=== PATIENT | female | born 2005 | race Caucasian/White ===

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

== ENCOUNTER 2024-01-18 13:50 | Emergency (ER) | payer SELFPAY ==
[2024-01-18 13:54] VITALS: BP 107/77; PULSE 110; TEMP 36.8; O2SAT 99; BMI 29.5
--- NOTE | 2024-01-18 14:06 | ED.GENADUL1 ---
HPI HPI - General Adult General Chief complaint: Skin/Abscess/Foreign Body Stated complaint: INSECT BITE, CONGESTION Time Seen by Provider: 01/18/24 13:52 Source: patient Mode of arrival: walk-in Limitations: no limitations History of Present Illness HPI narrative: Patient is a 18-year-old female who presents to the emergency department because she is afraid that she was bitten by a brown recluse earlier today. She states she saw a spider in the home, she believes she identified it as a brown recluse spider. She has no areas of bite, no other focal medical complaints other than congestion and pressure in the right ear. She wants her daughter also evaluated to make sure that she was not bitten. Patient has not had any vomiting, diarrhea, fevers, stomach cramps. She is not concerned for . No medications taken prior to arrival. Related Data Previous Rx's ?Medication ?Instructions ?Recorded amoxicillin 500 mg capsule 500 mg PO TID 10 days #30 caps 10/22/23 [id number] 10 ml PO Q6H PRN cold symptoms 01/18/24 2 mg-30 mg-10 mg/5 mL oral syrup #200 mL (Bromfed DM) Allergies Allergy/AdvReac Type Severity Reaction Status Date / Time No Known Drug Allergies Allergy Verified 10/22/23 04:54 Opioid HPI Opioid Management Most Recent Opioid Data: No Data to Display Review of Systems ROS Constitutional Denies: fever or chills Ears, nose, mouth, and throat Reports: ear pain and nasal congestion; Denies: throat pain Cardiovascular Denies: chest pain Respiratory Denies: shortness of breath or cough Gastrointestinal Denies: nausea, vomiting or diarrhea Musculoskeletal Denies: back pain Integumentary/Breast Denies: rash, redness or skin pain Hematologic/Lymphatic Denies: easy bruising or easy bleeding Exam Narrative Exam Narrative: Gen.: Awake, alert, in no distress Head: Normocephalic, atraumatic ENT: Moist mucous membranes, Bilateral TMs Clear Respiratory: No respiratory distress Extremities: Moves extremities equally Psych: Normal mood and affect Neuro: No focal neuro deficit Skin: Warm, dry, intact; No visible insect bites, redness or rash Constitutional Vital Signs, click to edit/add: Last Vital Signs Temp 98.2 F 01/18/24 13:54 Pulse 110 H 01/18/24 13:54 Resp 18 01/18/24 13:54 BP 107/77 01/18/24 13:54 Pulse Ox 99 01/18/24 13:54 Course Vital Signs Vital signs: Vital Signs Temperature 98.2 F 01/18/24 13:54 Pulse Rate 110 H 01/18/24 13:54 Respiratory Rate 18 01/18/24 13:54 Blood Pressure 107/77 01/18/24 13:54 Pulse Oximetry 99 01/18/24 13:54 Temperature 98.2 F 01/18/24 13:54 Pulse Rate 110 H 01/18/24 13:54 Respiratory Rate 18 01/18/24 13:54 Blood Pressure 107/77 01/18/24 13:54 Pulse Oximetry 99 01/18/24 13:54 Medical Decision Making MDM Narrative Medical decision making narrative: Patient's daughter was tested for influenza and RSV 2 days ago and was negative. Patient likely has a viral upper respiratory infection similar to her daughter. She was started on Bromfed-DM, she has no evidence of insect bite at this time. Follow-up with PCP, patient was given a referral as she does not currently have a doctor. Return to the ER if symptoms change or worsen Medical Records Medical records reviewed: Yes I reviewed the patient's medical records Discharge Plan Discharge Stand Alone Forms: Portal Instructions Chief Complaint: Skin/Abscess/Foreign Body Clinical Impression: Upper respiratory infection Patient Disposition: Home, Self-Care Time of Disposition Decision: 14:05 Condition: Good Prescriptions / Home Meds: New [id number] [Bromfed DM] 2-30-10 mg/5 mL syrup 10 ml PO Q6H PRN (Reason: cold symptoms) Qty: 200 0RF No Action amoxicillin 500 mg capsule 500 mg PO TID 10 Days Qty: 30 0RF Print Language: Upper Sorbian Instructions: Upper Respiratory Infection (ED) Referrals: Physician,Non-Staff, MD [Primary Care Provider] - 1 week
== END 2024-01-18 14:13 | disposition home or self-care (01) ==
LOC: ER 14:16
PROVIDERS: Emergency Provider Emergency Medicine
DX: J06.9 Acute upper respiratory infection, unspecified (principal)
CPT/HCPCS: 99283

== ENCOUNTER 2024-02-23 00:25 | Emergency (ER) | payer OTHER, SELFPAY ==
[2024-02-23 00:28] VITALS: BP 107/70; PULSE 83; TEMP 37; O2SAT 100; BMI 17.4
--- OUTSIDE RECORDS SUMMARY | 2024-02-23 00:31 | XMS_ITS | CCD ---
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 [facility] [address] [place] [address] Dr. Earl Lugo Platelet mean volume (Bld) [Entitic vol] 10.9 fL Normal 9.5-13.5 [facility] Comment on above: Performed By: #### C BC #### [facility] [address] [address] [address] Earl Lugo PLT 300 103/ul Normal 150-450 [facility] Comment on above: Performed By: #### C BC #### [facility] [address] [address] [address] Earl Lugo RBC 3.93 106/ul Normal 3.40-5.30 [facility] Comment on above: Performed By: #### C BC #### [facility] [address] [address] [address] Earl Lugo WBC 8.6 103/ul Normal 4.0-11.0 [facility] Comment on above: Performed By: #### C BC #### [facility] [address] [place] [address] Dr. Earl Lugo Covid-19 PCR (CVDTBH)on 02-14 SARS-CoV-2 (COVID-19) RNA SIMRAN+probe Ql (Unsp spec) Not detected Normal NOT DETECTED [facility] Comment on above: Result Comment: When diagnostic testing is negative, the possibility of a false negative should be considered in the context of a patient's recent exposures and the presence of clinical signs and symptoms consistent with SARS-CoV-2. This test is not yet approved or cleared by the [place] FDA. When there are no FDA-approved or cleared tests available, and other criteria are met, FDA can make tests available under an emergency access mechanism called an Emergency Use Authorization (EUA). The EUA for this test is supported by the Agricultural Extension Educator of Health and Human Service's declaration that circumstances exist to justify the emergency use of in vitro diagnostics for the detection and/or diagnosis of the virus that causes COVID-19. This EUA will remain in effect for the duration of the COVID-19 declaration justifying emergency of IVDs, unless it is terminated or revoked by the FDA (after which the test may no longer be used). Performed By: #### C VDTBH #### [facility] [address] [place] [address] Dr. Earl Lugo DRUG SCREEN RAPID (URINE)on 03-03-2022 AMP Negative Normal NEGATIVE [facility] Comment on above: Performed By: #### D RUGRPD #### [facility] [address] [place] [address] Dr. Earl Lugo BAR Negative Normal NEGATIVE [facility] Comment on above: Performed By: #### D RUGRPD #### [facility] [address] [place] [address] Dr. Earl Lugo BUP Negative Normal NEGATIVE [facility] Comment on above: Performed By: #### D RUGRPD #### [facility] [address] [place] [address] Dr. Earl Lugo BZO Negative Normal NEGATIVE [facility] Comment on above: Performed By: #### D RUGRPD #### [facility] [address] [place] [address] Dr. Earl Lugo SLAVA Negative Normal NEGATIVE [facility] Comment on above: Performed By: #### D RUGRPD #### [facility] [address] [place] [address] Dr. Earl Lugo CUT-OFFS SEE BELOW Normal [facility] Comment on above: Result Comment: AMP (Amphetamine): 500ng/mL, BAR (Barbituates): 200 ng/mL, BZO (Benzodiazepines): 150 ng/mL, BUP (Buprenorphine): 10 ng/mL, SLAVA (Cocaine): 150 ng/mL, mAMP (Methamphetamine): 500 ng/mL, MTD (Methadone): 200 ng/mL, OPI (Opiates): 100 ng/mL, OXY (Oxycodone): 100 ng/mL, PCP (Phencyclidine): 25 ng/mL, PPX (Propoxyphene): 300 ng/mL, THC (Cannabinoids): 50 ng/mL, TCA (Trycyclic Antidepressants): 300 ng/mL Performed By: #### D RUGRPD #### [facility] [address] [place] [address] Dr. Earl Lugo DRUG CUT HEADER DRUG CLASS TEST SYSTEM CUT-OFF CONCENTRATIONS ARE FOLLOWS: Normal [facility] Comment on above: Performed By: #### D RUGRPD #### [facility] [address] [place] [address] Dr. Earl Lugo mAMP Negative Normal NEGATIVE [facility] Comment on above: Performed By: #### D RUGRPD #### [facility] [address] [address] [address] Earl Lugo MTD Negative Normal NEGATIVE [facility] Comment on above: Performed By: #### D RUGRPD #### [facility] [address] [place] [address] Dr. Earl Lugo OPI Negative Normal NEGATIVE [facility] Comment on above: Performed By: #### D RUGRPD #### [facility] [address] [place] [address] Dr. Earl Lugo OXY Negative Normal NEGATIVE [facility] Comment on above: Performed By: #### D RUGRPD #### [facility] [address] [place] [address] Dr. Earl Lugo PCP Negative Normal NEGATIVE [facility] Comment on above: Performed By: #### D RUGRPD #### [facility] [address] [place] [address] Dr. Earl Lugo PPX Negative Normal NEGATIVE [facility] Comment on above: Performed By: #### D RUGRPD #### [facility] [address] [place] [address] Dr. Earl Lugo TCA Negative Normal NEGATIVE [facility] Comment on above: Performed By: #### D RUGRPD #### [facility] [address] [place] [address] Dr. Earl Lugo THC Positive Abnormal NEGATIVE [facility] Comment on above: Performed By: #### D RUGRPD #### [facility] [address] [place] [address] Dr. Earl Lugo TYPE AND SCREENon 03-03-2022 TYPE AND SCREEN Negative Normal [facility] Comment on above: Performed By: #### T NS #### [facility] [address] [place] [address] Dr. Earl Lugo GROUP B STREP CULTUREon 02-14 S. agalactiae Ag Ql (Unsp spec) Culture Observations: NEGATIVE FOR GROUP B STREPTOCOCCUS. Normal [facility] Comment on above: Performed By: #### G BSCX #### [facility] [address] [place] [address] Dr. Earl Lugo PREG GROWTHon 03-01-2022 US PREG GROWTH EXAMINATION: US PREG GROWTH HISTORY: Uterine size for dates discrepancy COMPARISON: No relevant comparison available. FINDINGS: Heart Rate: 135.0 bpm Amniotic Fluid Volume: 10.3 cm Number: 1.0 Position: Breech presentation, longitudinal lie Maximum Vertical Pocket: 3.5 cm cm 3.0 cm cm 0.7 cm cm 3.2 cm cm BIOMETRY: BPD: 8.7 cm cm; 35 weeks 0 days; 38% HC: 32.9 cmcm; 37 weeks 2 days, 62% AC: 31.7 cm cm; 35 weeks 4 days, 61% FL: 7.2 cm cm; 37 weeks 0 days; 80.0 % % EFW: 2852.2 grams, 6 lbs. 5 oz., 65% FL/AC: 22.8 FL/BPD: 83.4 HC/AC: 1.0 GESTATIONAL AGE: Age by EDC: 35 weeks 4 days ZINA by EDC: 04/01/2022 Age by US: 36 weeks 2 days ZINA by US: 03/27/2022 IMPRESSION: Normal interval growth Electronically authenticated by: KASHIF SLOAN Date: 2022-03-01 11:36 Normal [facility] Vital Signs Date Time Vital Sign Value Performing Clinician Facility 02-03-2024 14:37-0400 Body height 160.02 cm PHYSICIAN NO [facility] 02-03-2024 14:37-0400 Body temperature 98.6 [degF] PHYSICIAN NO [facility] 02-03-2024 14:37-0400 Body weight 44.3 kg PHYSICIAN NO [facility] 02-03-2024 14:37-0400 Diastolic blood pressure 75 mm[Hg] PHYSICIAN NO [facility] 02-03-2024 14:37-0400 Heart rate 95 /min PHYSICIAN NO [facility] 02-03-2024 14:37-0400 Respiratory rate 16 /min PHYSICIAN NO [facility] 02-03-2024 14:37-0400 SaO2% (BldA) [Mass fraction] 100 % PHYSICIAN NO [facility] 02-03-2024 14:37-0400 Systolic blood pressure 119 mm[Hg] PHYSICIAN [facility] 07-21-2022 19:17-0400 Body height 154.9 cm Daniel Mg MD Work Phone: [facility] [employer] 07-21-2022 19:17-0400 Body mass index (BMI) [Percentile] Per age and sex 5.93 % Daniel Mg MD Work Phone: [facility] [employer] 07-21-2022 19:17-0400 Body mass index (BMI) [Ratio] 17.76 kg/m2 Daniel Mg MD Work Phone: [facility] [employer] 07-21-2022 19:17-0400 Body temperature 99.19 [degF] Daniel Mg MD Work Phone: [facility] 07-21-2022 19:17-0400 Body weight 42.64 kg Daniel Mg MD Work Phone: [facility] [employer] 07-21-2022 19:17-0400 Diastolic blood pressure 84 mm[Hg] Daniel Mg MD Work Phone: [facility] [employer] 07-21-2022 19:17-0400 Heart rate 118 /min Daniel Mg MD Work Phone: [facility] 07-21-2022 19:17-0400 Respiratory rate 18 /min Daniel Mg MD Work Phone: [facility] [employer] 07-21-2022 19:17-0400 SaO2% (BldA) [Mass fraction] 96 % Daniel Mg MD Work Phone: [facility] [employer] 07-21-2022 19:17-0400 Systolic blood pressure 117 mm[Hg] Daniel Mg MD Work Phone: [facility] Encounters Encounter Date Encounter Type Care Provider Facility Start: 02-03-2024 End: 02-03-2024 Emergency department patient visit Zina White Facility:[facility] Start: 02-03-2024 End: 02-03-2024 Emergency department patient visit PHYSICIAN DEBI ALBARRAN [facility] Work Phone: Start: 02-01-2024 End: 02-01-2024 Emergency department patient visit [facility] Start: 12-20-2023 ambulatory Jessenia De Los Santos [facility] Work Phone: [facility] Start: 12-20-2023 Chart abstracting Jessenia jarrett [facility] Work Phone: [facility] Start: 09-14-2023 ambulatory GEOVANNA Silva [facility] Start: 08-25-2023 End: 08-26-2023 ambulatory Jason [employer] [facility] Start: 08-24-2023 End: 08-25-2023 ambulatory Jason [employer] [facility] Start: 03-30-2023 ambulatory GEOVANNA Silva [facility] Start: 01-31-2023 End: 01-31-2023 ambulatory NONE LISTED REQUEST Facility: Start: 11-26-2022 End: 11-26-2022 Emergency department patient visit UNKNOWN PROVIDER Facility:[facility] Start: 11-26-2022 E.D. Visit Edna Glez om BOX ORDER PERSON Work Phone: [facility] Comment on above: Trauma/complex Medic al Situation Start: 07-21-2022 End: 07-21-2022 Emergency department patient visit DANIEL MG [facility] Start: 07-21-2022 End: 07-21-2022 Emergency department patient visit Daniel Mg MD Work Phone: [facility] ED Comment on above: Depression, unspecif ied depression type (Primary Dx) Start: 03-25-2022 End: 03-25-[address] MIRTHA JEROME . Facility: Start: 03-12-2022 End: 03-25-[address] MIRTHA JEROME . Facility:[facility] Start: 03-08-2022 End: 03-08-[address] MIRTHA JEROME . Facility:[facility] Start: 03-03-2022 End: 03-07-2022 Evaluation and management of inpatient DR MIRTHA JEROME . Facility:[facility] Start: 03-02-2022 End: 03-02-[address] MIRTHA JEROME . Facility:[facility] Start: 03-01-2022 End: 03-02-[address] MIRTHA JEROME . Facility: Procedures Date Procedure Procedure Detail Performing Clinician Start: 02-03-2024 Streptococcus pyogen es antigen assay PHYSICIAN NO FAMILY Start: 08-31-2023 End: 08-31-2023 Psychotherapy w/patient 30 minutes Other specified mental disorder Geovanna Lyn [employer] Work Phone: Comment on above: Other specified ment al disorder (Primary Dx) Start: 08-18-2023 End: 08-18-2023 Psychotherapy w/patient 30 minutes Other specified mental disorder Geovanna Lyn [employer] Work Phone: Comment on above: Other specified ment al disorder (Primary Dx) Start: 06-29-2023 End: 06-29-2023 Psychotherapy w/patient 30 minutes Other specified mental disorder Geovanna Lyn [employer] Work Phone: Comment on above: Other specified ment al disorder (Primary Dx) Start: 06-16-2023 End: 06-16-2023 Psychotherapy w/patient 30 minutes Other specified mental disorder Geovanna Lyn [employer] Work Phone: Comment on above: Other specified ment al disorder (Primary Dx) Start: 05-25-2023 End: 05-25-2023 Psychotherapy w/patient 30 minutes Other specified mental disorder Geovanna Lyn [employer] Work Phone: Comment on above: Other specified ment al disorder (Primary Dx) Start: 04-26-2023 End: 04-26-2023 Psychotherapy w/patient 30 minutes Other specified mental disorder Geovanna Lyn [employer] Work Phone: Comment on above: Other specified ment al disorder (Primary Dx) Start: 04-12-2023 End: 04-12-2023 Psychotherapy w/patient 30 minutes Other specified mental disorder [facility] Work Phone: Comment on above: Other specified ment al disorder (Primary Dx) Start: 03-15-2023 End: 03-15-2023 Psychotherapy w/patient 30 minutes Other specified mental disorder [facility] Work Phone: Comment on above: Other specified ment al disorder (Primary Dx) Start: 03-01-2023 End: 03-01-2023 Psychotherapy w/patient 30 minutes Other specified mental disorder [facility] Work Phone: Comment on above: Other specified ment al disorder (Primary Dx) Start: 02-18-2023 End: 02-18-2023 Psychotherapy w/patient 60 minutes Generalized anxiety disorder [facility] Work Phone: Comment on above: Generalized anxiety disorder (Primary Dx) Start: 02-02-2023 End: 02-02-2023 Psychotherapy w/patient 30 minutes Other specified mental disorder [facility] Work Phone: Comment on above: Other specified ment al disorder (Primary Dx) Start: 01-19-2023 End: 01-19-2023 Psychotherapy w/patient 30 minutes Generalized anxiety disorder [facility] Work Phone: Comment on above: Generalized anxiety disorder (Primary Dx) Start: 01-05-2023 End: 01-05-2023 Psychotherapy w/patient 30 minutes Other specified mental disorder [facility] Work Phone: Comment on above: Other specified ment al disorder (Primary Dx) Start: 12-22-2022 End: 12-22-2022 Psychotherapy w/patient 30 minutes Other specified mental disorder [facility] Work Phone: Comment on above: Other specified ment al disorder (Primary Dx) Start: 12-08-2022 End: 12-08-2022 Psychotherapy w/patient 30 minutes Other specified mental disorder [facility] Work Phone: Comment on above: Other specified ment al disorder (Primary Dx) Start: 11-24-2022 End: 11-24-2022 Psychotherapy w/patient 30 minutes Other specified mental disorder Geovanna Lyn [facility] Work Phone: Comment on above: Other specified ment al disorder (Primary Dx) Start: 03-03-2022 Extraction of Produc ts of Conception, Low Cervical, Open Approach DR NONE LISTED REQUEST Plan of Treatment Date Care Activity Detail Author Start: 06-16-2024 Relationship Safety Screening/Counseling Relationship Safety Screening/Counseling [facility] Start: 02-03-2024 Streptococcus pyogen es Ag [Presence] in Throat Group A Strep Throat Culture [facility] Start: 10-17-2023 Depression screening Depressio n Annual Screen [facility] Start: 10-17-2023 Screening for substa nce abuse Alcohol and Drug Screen [facility] Start: 06-17-2023 [facility] Start: 2023 Tetanus vaccination Imm-DTaP/T dap/Td (1 - Tdap) [facility] Start: 10-17-2022 Depression screening Depressio n Annual Screen (#1) [facility] Start: 10-17-2022 Screening for substa nce abuse Alcohol and Drug Screen [facility] Start: 07-17-2022 Influenza vaccination Influenza Vacc ine (#1) [facility] Start: 06-17-2022 Influenza vaccination Imm-Influenza (#1) [facility] Start: 05-17-2022 Influenza vaccination Flu vaccine (# 1) [facility] Start: 2022 Hepatitis C screening Hepatitis C An tibody [facility] Start: 2022 Hypertension screening Hyperte nsion Screening (#1) [facility] Start: 2022 Screening for Chlamy wendie trachomatis STI Screening (Age 18-24) [facility] Start: 2022 Tetanus + diphtheria + acellular pertussis vaccine (product) Tdap Booster [facility] Start: 2022 Vision Test (18 yrs,once) Vision Test (18 yrs,once) [facility] Start: 2020 Meningococcal B (Bexsero,OMV) Vaccine (Optional,16-23 years) (#1) Meningococcal B (Bexsero,OMV) Vaccine (Optional,16-23 years) (#1) [facility] Start: 2020 Meningococcal Conjug ate (MCV4,ACWY) Vaccine (1 - 2-dose series) Meningococcal Conjugate (MCV4,ACWY) Vaccine (1 - 2-dose series) [facility] Start: 2020 Meningococcal conjug ate vaccination Imm-Meningococcal (1 - 2-dose series) [facility] Start: 2019 HIV Screening HIV Screening [facility] Start: 2019 HIV screening HIV Test [facility] Start: 2019 Relationship Safety Screening Relationship Safety Screening [facility] Start: 2019 Relationship Safety Screening/Counseling Relationship Safety Screening/Counseling [facility] Start: 2017 Gonorrhea Screening Gonorrhea Screen ing [facility] Start: 2017 Screening for Chlamy wendie trachomatis Chlamydia Screening [facility] Start: 2015 Vaccination for tawnya n papillomavirus [facility] Start: 2014 Hearing Test (10-18 yrs,once) Hearing Test (10-18 yrs,once) [facility] Start: 2013 Lipid panel Lipid Screening [facility] Start: 2011 DTaP/Tdap/Td vaccine (1 - Tdap) DTaP/Tdap/Td vaccine (1 - Tdap) [facility] Start: 2011 Tetanus vaccination Imm-DTaP/T dap/Td (1 - Tdap) [facility] Start: 2011 Tetanus,Diptheria,Pe rtus sis Vaccine (1 - Tdap) Tetanus,Diptheria,Pertu ssis Vaccine (1 - Tdap) [facility] Start: 2005 Hepatitis A (HAV) Vaccine (1 of 2 - 2-dose series) Hepatitis A (HAV) Vaccine (1 of 2 - 2-dose series) [facility] Start: 2005 Hepatitis A immunization Imm-H epatitis A (1 of 2 - 2-dose series) [facility] Start: 2005 Wcamfhd-vhble-ypwata a vaccination [facility] Start: 2005 Varicella vaccination C [facility] Start: 2004 COVID-19 Vaccine (#1) COVID-19 Vacci ne (#1) [facility] Start: 2004 [id number] (#1) [id number] (#1) [facility] Start: 2004 Hepatitis B vaccination [facility] Start: 2004 Hepatitis C screening Hepatitis C Sc reening [facility] Start: 2004 STI Counseling STI Counseling [facility] Start: 2004 Tobacco Screening Tobacco Screening [facility] Patient Education Lymphadenitis (DC) [facility] Work Phone: Patient referral [facility] Work Phone: End: 07-21-2022 , Urine , Urine Lab STAT One Time for 1 Occurrences starting 07/21/2022 until 07/21/2022 [facility] [employer] Work Phone: Comment on above: One Time for 1 Occur rences starting 07/21/2022 until 07/21/2022 [facility] Payers Date Payer Category Payer Self-pay 2022 Unknown [employer] AC CIDENT CVG. [employer] ACCIDENT CVG. [id number]-Present [address] [place] [address] Indemnity [id number] 2022 Unknown [id number] 2022 Medicaid [id number] 2004 Unknown [id number] 2004 Unknown [id number] 2004 Unknown [id number] 2004 Unknown [id number] 2004 Unknown [id number] 1976 Unknown [id number] 1976 Unknown [id number] 1976 Unknown [id number] 1976 Unknown [id number] 1976 Unknown [id number] 1976 Unknown [id number] 1976 Unknown [id number] 1959 Medicaid [id number] 1959 Unknown [id number] Unknown [id number] Social History Date Type Detail Facility Start: 07-21-2022 Tobacco smoking status [facility] Never smoked tobacco [employer] Phone: Start: 07-21-2022 Tobacco use and exposure Smokeless tobacco non-user [employer] Phone: Start: 07-21-2022 Alcohol intake Lifetime non-d lily (finding) [employer] Phone: Start: 2004 Sex Assigned At Not on file B ON [employer] Phone: Start: 07-11-2022 End: 07-21-2022 Exposure to SARS-CoV-2 (event) Not sure [employer] [facility] Work Phone: Tobacco smoking status NHIS Tobacco smoking consumption unknown [facility] Work Phone: Start: 2005 [facility] At [facility] Start: 10-13-2022 End: 06-16-2023 History of Social function [facility] Work Phone: Start: 10-13-2022 End: 06-16-2023 Social Connections [facility] Work Phone: Social Connections and Isolation 0 [facility] Work Phone: Start: 09-27-2022 Gender identity Identifies as female gender (finding) [facility] Start: 09-27-2022 Sexual orientation Heterosexual (fin ding) [facility] Start: 02-03-2024 Tobacco smoking status NHIS Ex-smoker (finding) [facility] NEGATED: Highlighted row [facility] Clinical Notes 03-03-2022 to 12-20-2023 JAQUELINE Elliott - 12/20/2023 3:33 PM JAQUELINE Alfonso - 09/02/2023 10:05 AM JAQUELINE Alfonso - 08/18/2023 5:08 PM EDTCaroJAQUELINE Deleon - 06/29/2023 2:02 PM EDT Note Date & Type Note Facility 12-20-2023 History of Present illness Narrative DISCHARGE PROGRESS NOTE Emely Zamudio, 18 year old, female is being closed for counseling or case management services due to completing current treatment needs . Client progress made includes awareness of thoughts . Screenings: Current: Previous: Current: Previous: Referrals made No orders of the defined types were placed in this encounter. documented in this encounter [facility] Work Phone: 09-02-2023 History of Present illness Narrative Emely Heidyventura engaged in a telehealth session via PHONE with this provider practicing within the [facility]. The identity of Emely was verified by their date of , (2005), and last four digits of their social security number, ([id number]). The provider demonstrated that confidentially was preserved at their location. Emely was informed that they were responsible for ensuring confidentially was secured at their location. Rubys location was documented for emergency purposes. Emely was informed of the necessary steps that would occur if an emergency was to occur or technology failed during session. COUNSELING PROGRESS NOTE Emely Zamudio is a 18 year old female here today for Individual Counseling . . [facility] assessed client's current mental status. [facility] reviewed events of past to weeks. [facility] processed with client how she is coping with likelihood that her daughter will be coming to live with her time study technologist. [facility] encouraged client on being planful in getting ready. [facility] confirmed client still has support of her father despite with with a girlfriend at this time. . SUBJECTIVE: Client appeared nervous or anxious. Evaluated Safety and risk: N/A. OBJECTIVE: Assessment of Mood: anxiety Discussed client's use of CBT and Solution Focused Therapy. Goal from [facility] addressed during this session: decrease anxiety symptoms ASSESSMENT: Diagnosis: No diagnosis found. Engaged client in learning Review of Thinking Errors and Cognitive Challenges, Self-Compassion, and Tolerating Distress Progress toward goal: No Change PLAN: Assigned homework/practice of the following: Review of Thinking Errors and Cognitive Challenges. Continue psychotherapy Current Service Plan Service Plan Mental Health Decrease depressive and anxiety symptoms Elimnate crying at night after video chat with daughter with return of custody Current Care Plan There are no care plans that you recently modified to display for this patient. Next appointment: Scheduled next appointment for 08/27/29 12:00 at Office:[facility]. documented in this encounter [facility] [employer] [facility] Work Phone: 08-18-2023 History of Present illness Narrative Emely Zamudio engaged in a telehealth session via PHONE with this provider practicing within the [facility]. The identity of Emely was verified by their date of , (2005), and last four digits of their social security number, ([id number]). The provider demonstrated that confidentially was preserved at their location. Emely was informed that they were responsible for ensuring confidentially was secured at their location. Emely's location was documented for emergency purposes. Emely was informed of the necessary steps that would occur if an emergency was to occur or technology failed during session. COUNSELING PROGRESS NOTE Emely Zamudio is a 18 year old female here today for Individual Counseling . [facility] assessed client's current mental fuctioning. [facility] learned that client had moved and changed phone number to which [facility] changed phone number in computer. [facility] reviewed status of client's return of custody of child to her. [facility] encouraged client in the progress she has made. SUBJECTIVE: Client appeared neutral or euthymic. Evaluated Safety and risk: N/A. OBJECTIVE: Assessment of Mood: anxiety and depressed mood Discussed client's use of CBT and Solution Focused Therapy. Goal from [facility] addressed during this session: Decrease anxiety with return of child to her care ASSESSMENT: Diagnosis: No diagnosis found. Engaged client in learning Review of Thinking Errors and Cognitive Challenges, Self-Compassion, and Tolerating Distress Progress toward goal: No Change PLAN: Assigned homework/practice of the following: Review of Thinking Errors and Cognitive Challenges, Self-Compassion, and Tolerating Distress. Continue psychotherapy Current Service Plan Service Plan Mental Health Decrease depressive and anxiety symptoms Elimnate crying at night after video chat with daughter with return of custody Current Care Plan There are no care plans that you recently modified to display for this patient. Next appointment: Scheduled next appointment for 08/28/23 12:00 at Office:[facility]. documented in this encounter [facility] Work Phone: 06-29-2023 History of Present illness Narrative Emely Zamudio engaged in a telehealth session via PHONE with this provider practicing within the [facility]. The identity of Emely was verified by their date of , (2005), and last four digits of their social security number, ([id number]). The provider demonstrated that confidentially was preserved at their location. Emely was informed that they were responsible for ensuring confidentially was secured at their location. Rubys location was documented for emergency purposes. Emely was informed of the necessary steps that would occur if an emergency was to occur or technology failed during session. COUNSELING PROGRESS NOTE Emely Zamudio is a 18 year old female here today for Individual Counseling . [facility] assessed client's current mental staus. [facility] explored with client progress in receiving custody back of her daughter. [facility] encouraged client in her devotion to doing what is needed to regain custody of her daughter. [facility] provided information regarding [employer]. SUBJECTIVE: Client appeared neutral or euthymic and nervous or anxious. Evaluated Safety and risk: N/A. OBJECTIVE: Assessment of Mood: anxiety Discussed client's use of CBT and Solution Focused Therapy. Goal from [facility] addressed during this session: Decrease anxiety ASSESSMENT: Diagnosis: No diagnosis found. Engaged client in learning Review of Thinking Errors and Cognitive Challenges, Self-Compassion, and Tolerating Distress Progress toward goal: No Change PLAN: Assigned homework/practice of the following: Review of Thinking Errors and Cognitive Challenges, Self-Compassion, and Tolerating Distress. Continue psychotherapy Current Service Plan Service Plan Mental Health Decrease depressive and anxiety symptoms Elimnate crying at night after video chat with daughter with return of custody Current Care Plan There are no care plans to display for this patient. Next appointment: Scheduled next appointment for 07/13/23 11:00 at Office:[facility]. documented in this encounter [facility] Work Phone: 06-16-2023 History of Present illness Narrative Emely Zamudio engaged in a telehealth session via VIDEO with this provider practicing within the [facility]. The identity of Emely was verified by their date of , (2005), and last four digits of their social security number, ([id number]). The provider demonstrated that confidentially was preserved at their location. Emely was informed that they were responsible for ensuring confidentially was secured at their location. Marissamary's location was documented for emergency purposes. Emely was informed of the necessary steps that would occur if an emergency was to occur or technology failed during session. COUNSELING PROGRESS NOTE Emely Zamudio is a 18 year old female here today for Individual Counseling . [facility] assessed client's current mental status. [facility] reviewed status of schedule ot return to daughter to her which client reports to be more likely than in recent past. [facility] reviewed status of client's employment and her transporation. [facility] completed PHQ9, GAD7, and SDH surveys with client and normalized some emotions with client. SUBJECTIVE: Client appeared nervous or anxious. Eager to receive custody back of her child Evaluated Safety and risk: N/A. OBJECTIVE: Assessment of Mood: anxiety Discussed client's use of CBT, Solution Focused Therapy, and Trauma Informed Care. Goal from [facility] addressed during this session: Decrease depressive and anxiety symptoms and receive custody back of her child ASSESSMENT: Diagnosis: No diagnosis found. Engaged client in learning Review of Thinking Errors and Cognitive Challenges, Self-Compassion, and Tolerating Distress Progress toward goal: No Change PLAN: Assigned homework/practice of the following: Review of Thinking Errors and Cognitive Challenges, Self-Compassion, and Tolerating Distress. Continue psychotherapy Current Service Plan Service Plan Mental Health Decrease depressive and anxiety symptoms Elimnate crying at night after video chat with daughter with return of custody Current Care Plan There are no care plans to display for this patient. Next appointment: Scheduled next appointment for 06/29/23 10:00 at Office:[facility]. documented in this encounter [facility] Work Phone: 05-30-2023 History of Present illness Narrative Emely Zamudio engaged in a telehealth session via VIDEO with this provider practicing within the [facility]. The identity of Emely was verified by their date of , (2005), and last four digits of their social security number, ([id number]). The provider demonstrated that confidentially was preserved at their location. Emely was informed that they were responsible for ensuring confidentially was secured at their location. Marissamary's location was documented for emergency purposes. [facility] was informed of the necessary steps that would occur if an emergency was to occur or technology failed during session.COUNSELING PROGRESS NOTE Emely Zamudio is a 18 year old female here today for Individual Counseling . [facility] assessed client's current mental status. [facility] identified progress in requirements to receiving custody of her daughter back. [facility] congrautlated client on getting her drivers license and getting her car working again. 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 SUBJECTIVE: Client appeared sad or depressed, nervous or anxious, and worried or scared. Evaluated Safety and risk: N/A. OBJECTIVE: Assessment of Mood: anxiety and depressed mood Discussed client's use of CBT and Solution Focused Therapy. Goal from [facility] addressed during this session: Receive custody of daughter ASSESSMENT: Diagnosis: No diagnosis found. Engaged client in learning Review of Thinking Errors and Cognitive Challenges, Self-Compassion, and Tolerating Distress Progress toward goal: No Change PLAN: Assigned homework/practice of the following: Review of Thinking Errors and Cognitive Challenges. Continue psychotherapy Current Service Plan Service Plan Mental Health Decrease depressive and anxiety symptoms Elimnate crying at night after video chat with daughter with return of custody Current Care Plan There are no care plans to display for this patient. Next appointment: Scheduled next appointment for 06/07/23 3:00 at Office:[facility]. documented in this encounter [facility] Work Phone: 04-28-2023 History of Present illness Narrative Emely Zamudio engaged in a telehealth session via PHONE with this provider practicing within the [facility]. The identity of Emely was verified by their date of , (2005), and last four digits of their social security number, ([id number]). The provider demonstrated that confidentially was preserved at their location. [facility] was informed that they were responsible for ensuring confidentially was secured at their location. Rubys location was documented for emergency purposes. [facility] was informed of the necessary steps that would occur if an emergency was to occur or technology failed during session.COUNSELING PROGRESS NOTE Emely Zamudio is a 18 year old female here today for Individual Counseling . (Sppointment started with about 10 video and concluded with 15 minute by phone.) [facility] assessed client's current mental status. [facility] agreed to call back because client was in an auto [employer] store. [facility] thanked client for call back. [facility] reviewed status plan of return of custody of daughter that has suffered a delay until her father passes investigation or she finds her own apartment. SUBJECTIVE: Client appeared neutral or euthymic and worried or scared. Evaluated Safety and risk: N/A. OBJECTIVE: Assessment of Mood: anxiety and depressed mood Discussed client's use of CBT and Solution Focused Therapy. Goal from [facility] addressed during this session: Return custody of daughter ASSESSMENT: Diagnosis: No diagnosis found. Engaged client in learning Review of Thinking Errors and Cognitive Challenges and Self-Compassion Progress toward goal: No Change PLAN: Assigned homework/practice of the following: Review of Thinking Errors and Cognitive Challenges and Tolerating Distress. Continue psychotherapy Current ISSP: Service Plan Mental Health Decrease depressive and anxiety symptoms Elimnate crying at night after video chat with daughter with return of custody Next appointment: Scheduled next appointment for 05/10/23 at Office:[facility]. documented in this encounter [facility] [employer] [facility] Work Phone: 04-14-2023 History of Present illness Narrative Emely Zamudio engaged in a telehealth session via VIDEO with this provider practicing within the [facility]. The identity of Emely was verified by their date of , (2005), and last four digits of their social security number, ([id number]). The provider demonstrated that confidentially was preserved at their location. [facility] was informed that they were responsible for ensuring confidentially was secured at their location. Emely's location was documented for emergency purposes. [facility] was informed of the necessary steps that would occur if an emergency was to occur or technology failed during session. COUNSELING PROGRESS NOTE Emely Zamudio is a 18 year old female here today for Individual Counseling . [facility] assessed client's current mental status. [facility] reviewed changes in client's life that included buying a car. [facility] encouraged client in all her efforts to prepare to receive her daughter back into her custody. [facility] explored client's emotional mood as she prepares for return of her daughter with a court date next week. [facility] encouraged client to keep up the good work. SUBJECTIVE: Client appeared worried or scared. Evaluated Safety and risk: N/A. OBJECTIVE: Assessment of Mood: anxiety and depressed mood Discussed client's use of CBT and Solution Focused Therapy. Goal from [facility] addressed during this session: Return of daughter to her custody ASSESSMENT: Diagnosis: No diagnosis found. Engaged client in learning Review of Thinking Errors and Cognitive Challenges, Self-Compassion, and Tolerating Distress Progress toward goal: No Change PLAN: Assigned homework/practice of the following: Review of Thinking Errors and Cognitive Challenges, Self-Compassion, and Tolerating Distress. Continue psychotherapy Current ISSP: Service Plan Mental Health Decrease depressive and anxiety symptoms Elimnate crying at night after video chat with daughter with return of custody Next appointment: Scheduled next appointment for 04/26/23 3:00 at Office:[facility]. documented in this encounter [facility] Work Phone: 03-16-2023 History of Present illness Narrative Emely Zamudio engaged in a telehealth session via VIDEO with this provider practicing within the [facility]. The identity of Emely was verified by their date of , (2005), and last four digits of their social security number, ([id number]). The provider demonstrated that confidentially was preserved at their location. [facility] was informed that they were responsible for ensuring confidentially was secured at their location. Emely's location was documented for emergency purposes. [facility] was informed of the necessary steps that would occur if an emergency was to occur or technology failed during session. COUNSELING PROGRESS NOTE Emely Zamudio is a 17 year old female here today for Individual Counseling . [facility] assessed client's current mental status. [facility] explored status of client's main goal to receive custody of her baby. [facility] confirmed with client her optimistic mood and support of family. [facility] encouraged client in the progress she has made toward her goal and the over all improvement in her life habits. SUBJECTIVE: Client appeared sad or depressed and nervous or anxious. Evaluated Safety and risk: N/A. OBJECTIVE: Assessment of Mood: anxiety and depressed mood Discussed client's use of CBT and Solution Focused Therapy. Goal from [facility] addressed during this session: Regain custody of her baby and decrease depressive symptoms ASSESSMENT: Diagnosis:Other specified mental disorder Engaged client in learning Review of Thinking Errors and Cognitive Challenges, Effective Communication, Self-Compassion, and Tolerating Distress Progress toward goal: No Change PLAN: Assigned homework/practice of the following: Review of Thinking Errors and Cognitive Challenges, Self-Compassion, and Tolerating Distress. Continue psychotherapy Current ISSP: Next appointment: Scheduled next appointment for 03/29/23 4:00 at Office:[facility]. documented in this encounter [facility] [employer] Work Phone: 03-01-2023 History of Present illness Narrative Emely Zamudio engaged in a telehealth session via VIDEO with this provider practicing within the [facility]. The identity of Emely was verified by their date of , (2005), and last four digits of their social security number, ([id number]). The provider demonstrated that confidentially was preserved at their location. Emely was informed that they were responsible for ensuring confidentially was secured at their location. Emely's location was documented for emergency purposes. Emely was informed of the necessary steps that would occur if an emergency was to occur or technology failed during session. COUNSELING PROGRESS NOTE Emely Zamudio is a 17 year old female here today for Individual Counseling . [facility] assessed client's current mental status. [facility] reviewed status of custody with daughter and supported client in her efforts to receive custody. [facility] encouraged client to continue meeting expectations. [facility] reviewed status of her job and family relationships. [facility] encouraged client in her building of bonds with paternal family who are supporting her. SUBJECTIVE: Client appeared sad or depressed. Evaluated Safety and risk: N/A. OBJECTIVE: Assessment of Mood: depressed mood Discussed client's use of CBT and Solution Focused Therapy. Goal from [facility] addressed during this session: Receive custody of her baby and decrease depressive symptoms ASSESSMENT: Diagnosis: No diagnosis found. Engaged client in learning Review of Thinking Errors and Cognitive Challenges, Effective Communication, Self-Compassion, and Tolerating Distress Progress toward goal: No Change PLAN: Assigned homework/practice of the following: Review of Thinking Errors and Cognitive Challenges, Self-Compassion, and Tolerating Distress. Continue psychotherapy Current ISSP: Next appointment: Scheduled next appointment for 02/3023 11:00 at Office:[facility]. documented in this encounter [facility] [employer] Work Phone: 02-18-2023 History of Present illness Narrative Emely Zamudio engaged in a telehealth session via VIDEO with this provider practicing within the [facility]. The identity of Emely was verified by their date of , (2005), and last four digits of their social security number, ([id number]). The provider demonstrated that confidentially was preserved at their location. Emely was informed that they were responsible for ensuring confidentially was secured at their location. Emely's location was documented for emergency purposes. Emely was informed of the necessary steps that would occur if an emergency was to occur or technology failed during session. COUNSELING PROGRESS NOTE Emely Zamudio is a 17 year old female here today for Individual Counseling. [facility] assessed client's current mental status. [facility] reviewed client goal of restoring custody of her child or at last improved visitation. Client reports unsupervised visitation. [facility] reviewed client's current day to day life including her relationship with the baby's father and with her own father. [facility] encouraged client in her being a good mother by working and paying child support. [facility] explored development of friendships at work and some peer level socializing and support. SUBJECTIVE: Client appeared sad or depressed, worried or scared, and guilty or ashamed. Evaluated Safety and risk: N/A. OBJECTIVE: Assessment of Mood: anxiety and depressed mood Discussed client's use of CBT and Solution Focused Therapy. Goal from [facility] addressed during this session: Restore custody of child ASSESSMENT: Diagnosis: No diagnosis found. Engaged client in learning Review of Thinking Errors and Cognitive Challenges, Self-Compassion, and Tolerating Distress Progress toward goal: No Change PLAN: Assigned homework/practice of the following: Review of Thinking Errors and Cognitive Challenges, Self-Compassion, and Tolerating Distress. Continue psychotherapy Current ISSP: Next appointment: Scheduled next appointment for 03/01/23 11:00 at Office:[facility]. documented in this encounter [facility] Work Phone: 02-07-2023 History of Present illness Narrative Emely Zamudio engaged in a telehealth session via PHONE with this provider practicing within the [facility]. The identity of Emely was verified by their date of , (2005), and last four digits of their social security number, ([id number]). The provider demonstrated that confidentially was preserved at their location. [facility] was informed that they were responsible for ensuring confidentially was secured at their location. Emely's location was documented for emergency purposes. [facility] was informed of the necessary steps that would occur if an emergency was to occur or technology failed during session. COUNSELING PROGRESS NOTE Emely Zamudio is a 17 year old female here today for Individual Counseling . [facility] assessed client's current mental status. [facility] explored changes in client's life over past two weeks. [facility] congratulated client on starting a new job. [facility] reviewed relationship with father and explored socializing with peer which client says she does not do. [facility] encouraged client to look for new goals to move her life forward. SUBJECTIVE: Client appeared sad or depressed. Evaluated Safety and risk: N/A. OBJECTIVE: Assessment of Mood: depressed mood, difficulty concentrating, and fatigue Discussed client's use of CBT and Solution Focused Therapy. Goal from ISSP addressed during this session: Decrease depressive symptoms ASSESSMENT: Diagnosis: No diagnosis found. Engaged client in learning Review of Thinking Errors and Cognitive Challenges, Self-Compassion, and Tolerating Distress Progress toward goal: No Change PLAN: Assigned homework/practice of the following: Behavioral Analysis, Self-Compassion, and Tolerating Distress. Continue psychotherapy Current ISSP: Service Plan Mental Health Decrease depressive and anxiety symptoms Elimnate crying at night after video chat with daughter with return of custody Next appointment: Scheduled next appointment for 02/16/23 3:00 at Office:[facility]. documented in this encounter [facility] Work Phone: 01-20-2023 History of Present illness Narrative Emely Zamudio engaged in a telehealth session via PHONE with this provider practicing within the [facility]. The identity of Emely was verified by their date of , (2005), and last four digits of their social security number, ([id number]). The provider demonstrated that confidentially was preserved at their location. Jasielmoore[place]maggie was informed that they were responsible for ensuring confidentially was secured at their location. Emely's location was documented for emergency purposes. Emely was informed of the necessary steps that would occur if an emergency was to occur or technology failed during session. COUNSELING PROGRESS NOTE Emely Zamudio is a 17 year old female here today for Individual Counseling . [facility] assessed client's current mental status. [facility] explored recent obvious changes in client's life including return to her father's home after breakup with boyfriend. [facility] observed increased calm presentation of client. [facility] processed with client what this change means to client's goal to receive custody of her baby back. [facility] encouraged client in her changing of her goal to improve her own functioning at this time. SUBJECTIVE: Client appeared sad or depressed and guilty or ashamed. Evaluated Safety and risk: N/A. OBJECTIVE: Assessment of Mood: anxiety and depressed mood Discussed client's use of CBT, Solution Focused Therapy, and Trauma Informed Care. Goal from ISSP addressed during this session: Decrease crying over loss of custody of baby ASSESSMENT: Diagnosis: No diagnosis found. Engaged client in learning Review of Thinking Errors and Cognitive Challenges, Self-Compassion, Mindfulness, and Tolerating Distress Progress toward goal: No Change PLAN: Assigned homework/practice of the following: Effective Communication, Self-Compassion, and Tolerating Distress. Continue psychotherapy Current ISSP: Service Plan Mental Health Decrease depressive and anxiety symptoms Elimnate crying at night after video chat with daughter with return of custody Next appointment: Scheduled next appointment for 02/01/23 11:00 at Office:[facility]. documented in this encounter [facility] Work Phone: 01-06-2023 History of Present illness Narrative Emely Zamudio engaged in a telehealth session via PHONE with this provider practicing within the [facility]. The identity of Emely was verified by their date of , (2005), and last four digits of their social security number, ([id number]). The provider demonstrated that confidentially was preserved at their location. Emely was informed that they were responsible for ensuring confidentially was secured at their location. Emely's location was documented for emergency purposes. Emely was informed of the necessary steps that would occur if an emergency was to occur or technology failed during session. COUNSELING PROGRESS NOTE Emely Zamudio is a 17 year old female here today for Individual Counseling . [facility] assessed client's current mental status. [facility] reviewed changed sin past two weeks. [facility] encouraged client in the movement forward to getting an apartment. [facility] supported client in her efforts at job change to job near new home. [facility] encouraged client in her efforts to move toward having her baby return to live with her. SUBJECTIVE: Client appeared sad or depressed. Evaluated Safety and risk: N/A. OBJECTIVE: Assessment of Mood: depressed mood Discussed client's use of CBT and Solution Focused Therapy. Goal from ISSP addressed during this session: Decrease depression by completing efforts to have baby return to her custody. ASSESSMENT: Diagnosis: No diagnosis found. Engaged client in learning Review of Thinking Errors and Cognitive Challenges, Self-Compassion, Mindfulness, and Tolerating Distress Progress toward goal: No Change PLAN: Assigned homework/practice of the following: Review of Thinking Errors and Cognitive Challenges, Self-Compassion, and Tolerating Distress. Continue psychotherapy Current ISSP: Service Plan Mental Health Decrease depressive and anxiety symptoms Elimnate crying at night after video chat with daughter with return of custody Next appointment: Scheduled next appointment for 01/19/23 2:00 at Office:[facility]. documented in this encounter [facility] Work Phone: 12-23-2022 History of Present illness Narrative Service Plan Date Created:12/23/2022 Strengths: Strengths as outlined by patient: No history of mental illness and current issue is circumstance based Strengths as described by others: Client has one focus to have custody returned of her daughter and client is willing to work toward this. Coping Skills: Working hard Stress Management: Talking with friends and family Social Support: Remains in relationship with her baby's father Hobbies and Interests: Likes movies, music and TV Needs: Client needs to be able to establish a stable home for her daughter . Assessed Needs Level of Service: Outpatient Service Plan Mental Health Decrease depressive and anxiety symptoms (target date: 12/24/2023) Elimnate crying at night after video chat with daughter with return of custody (target date: 12/23/2023) Whole Plan Services Indiv Counseling (2x Monthly; 60 - Mins; [facility]; LMP, PETROLEUM REFINING FIRER, THERAPIST RADIATION, PREFABRICATED HOUSES TRIMMER, Psychologist, QMHP) Plan Comments: Client reports depressive and anxiety symptoms as result of losing custody of her daughter Service Conclusion Criteria/Transition/Discharge: Custody of daughter will be restored to client and anxiety and depressive symptoms will be reduced to pre-loss of custody level Participants for Today s Plan: Patient acknowledges participating, agrees with plan. No other participants Copy Provided: None / ADMINISTRATIVE: Administrative Information: Next Review: 07/16/2023 Freq: 6-7 mo Submitted for switchboard operator supervisor signature to MARRY Elliott-[id number] COUNSELING SPRVS Emely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
--- NOTE | 2024-02-23 01:19 | ED_ITS ---
HPI - URI/Sore Throat General Chief Complaint: Upper Respiratory Infection Stated Complaint: sore throat Time Seen by Provider: 02/23/24 00:35 Source: patient Limitations: no limitations History of Present Illness HPI Narrative: This 18-year-old female presents for evaluation of 2 days of a sore throat and tender lymphadenopathy on the left. She has not had a fever. She denies any headache. She has not had a cough or runny nose. She denies any chest pain or shortness of breath. She denies the possibility of . She was seen here recently for a sore throat and prescribed amoxicillin. She states she took it for 5-6 days but then left it at work and somebody took it. She is not having any difficulty breathing or swallowing. She states she has had mono in the past and this feels differently. Related Data Allergies Allergy/AdvReac Type Severity Reaction Status Date / Time tramadol Allergy Unknown Verified 02/23/24 00:32 Review of Systems ROS Status of ROS 10 or more systems reviewed and unremark able except as noted in history and below Exam Narrative Exam Narrative: Nurses note and vital signs reviewed and patient is not hypoxic. General: Thin female resting comfortable on the stretcher, no respiratory distress Skin: Warm, dry, no pallor noted. There is no rash noted. Head: Normocephalic, atraumatic Eye: Normal conjunctiva, no drainage, EOMI. PERRL Ears, Nose, Mouth, and Throat: oral mucosa is moist. There is 2+ tonsillar hypertrophy without erythema or exudate. There is no postnasal drip. There is no swelling of the tongue, uvula or pharyngeal soft tissues. Neck: Supple, no meningeal signs, shotty bilateral anterior cervical lymphadenopathy, left greater than right Cardiovascular: Regular Rate and Rhythm S1S2, No murmurs rubs or gallops Respiratory: Patient is in no distress, no accessory muscle use, lungs are clear to auscultation, no wheezing, rales or rhonchi Neurological: A&O x4, normal speech Psychiatric: Cooperative Constitutional Vital Signs, click to edit/add: Last Vital Signs Temp 98.6 F 02/23/24 00:28 Pulse 83 02/23/24 00:28 Resp 16 02/23/24 00:28 BP 107/70 02/23/24 00:28 Pulse Ox 100 02/23/24 00:28 O2 Del Method Room Air 02/23/24 00:28 Course Vital Signs Vital signs: Vital Signs Temperature 98.6 F 02/23/24 00:28 Pulse Rate 83 02/23/24 00:28 Respiratory Rate 16 02/23/24 00:28 Blood Pressure 107/70 02/23/24 00:28 Pulse Oximetry 100 02/23/24 00:28 Oxygen Delivery Method Room Air 02/23/24 00:28 Temperature 98.6 F 02/23/24 00:28 Pulse Rate 83 02/23/24 00:28 Respiratory Rate 16 02/23/24 00:28 Blood Pressure 107/70 02/23/24 00:28 Pulse Oximetry 100 02/23/24 00:28 Oxygen Delivery Method Room Air 02/23/24 00:28 MDM - URI/Sore Throat MDM Narrative Medical decision making narrative: This 18-year-old female presents for evaluation of sore throat for the past 2 days with mild left-sided anterior cervical lymphadenopathy. She has not had a fever. She does not have a cough. She does not have a headache. She denies any nausea vomiting or diarrhea. She has no neck pain or stiffness. She was in the emergency department recently for a sore throat as well and given a prescription for amoxicillin despite testing for strep. She did not finish the prescription. She has some mild shotty left anterior cervical lymphadenopathy and 2+ tonsillar hypertrophy without any exudate or erythema. There is no postnasal drip. Her lungs are clear, she denies possibility of . Her strep and mono tests are both negative. I explained to her that antibiotics are not indicated we will treat her symptoms. She'll be given a prescription for ibuprofen and recommendation for throat lozenges, salt water gargles and plenty of fluids. Lab Data Labs: Lab Results 02/23/24 02/23/24 Range/Units 01:27 01:32 Monoscreen Negative (NEGATIVE) Streptococcus Screen Negative Discharge Plan Discharge Stand Alone Forms: Portal Instructions Chief Complaint: Upper Respiratory Infection Clinical Impression: Acute viral pharyngitis Patient Disposition: Home, Self-Care Time of Disposition Decision: 02:03 Condition: Good Print Language: Turkmen Instructions: Pharyngitis (ED), Upper Respiratory Infection (ED) Referrals: Physician,Non-Staff, MD [Primary Care Provider] - 1 week
[2024-02-23 01:46] LABS: Internal Control Within Normal Limits; Strep A Antigen Screen Negative
[2024-02-23 01:52] LABS: Mono Screen NEGATIVE (NEGATIVE)
== END 2024-02-23 02:31 | disposition home or self-care (01) ==
PROVIDERS: Emergency Provider Emergency Medicine
DX: J02.9 Acute pharyngitis, unspecified (principal)
CPT/HCPCS: 86308; 87070; 87880; 99283